=== PATIENT | female | born 1995 | race African-American/Black ===

== ENCOUNTER 2023-05-02 18:36 | Emergency (ER) | payer OTHER, SELFPAY ==
[2023-05-02] VITALS (9 sets, daily range): BP systolic 120–133; BP diastolic 76–79; PULSE 88–91; RESP 16–20; TEMP 37.2; O2SAT 100
--- NOTE | ~2023-05-02 | US_ITS ---
Pelvic ultrasound. Clinical History: First trimester , vaginal bleeding Technique: Realtime transabdominal and transvaginal scanning of the pelvis was performed. Color flow Doppler and Doppler spectral analysis were performed. Findings: The uterus is anteverted. The there is a very irregular intrauterine gestational sac, with septations and probable debris within the gestational sac. No well-defined pole or yolk sac ev ident.. Neither ovary seen. No adnexal mass seen. There is no evidence of free fluid in the cul de sac. Impression: Complex intrauterine gestational sac with septations and debris within the sac, but no pole or yolk sac. Findings are highly suspicious for blighted or/missed . Reviewed, dictated and finalized at location . Impression: Complex intrauterine gestational sac with septations and debris within the sac, but no pole or yolk sac. Findings are highly suspicious for blighted or/ missed .
--- NOTE | 2023-05-02 19:18 | PC.NURSE ---
Report received from SHERRI Armenta. Assumed care of patient at this time.
[2023-05-02 19:30] LABS: Basophils Percent Auto 0.8 % (0.2-1.2); Eosinophils Absolute Auto 0.2 K/mm3 (0-0.3); Eosinophils Percent Auto 4.6 % (0-4.4); Hematocrit 35.7 % (37.0-47.0); Hemoglobin 11.7 g/dL (12.0-15.0); Immature Granulocyte Absolute 0.01 K/mm3 (0.00-0.031); Immature Granulocyte Percent A 0.2 % (0-0.5); Lymphocytes Absolute Auto 1.32 K/mm3 (0.9-3.2); Lymphocytes Percent Auto 27.4 % (18.3-44.2); Mean Corpuscular HGB Conc 32.8 g/dl (32-36); Mean Corpuscular Hemoglobin 31.1 pg (26-34); Mean Corpuscular Volume 94.9 fl (80-100); Mean Platelet Volume 10.1 fl (7.4-10.4); Monocytes Absolute Auto 0.5 K/mm3 (0.1-0.6); Monocytes Percent Auto 10.2 % (2.6-8.5); Neutrophils Absolute Auto 2.7 K/mm3 (1.3-6.7); Neutrophils Percent Auto 56.8 % (45.5-73.1); Platelet Count Result 237 k/mm3 (150-375); Red Blood Count 3.76 M/mm3 (4.2-5.4); Red Cell Distribution Width 12.5 % (11.5-14.5); White Blood Count 4.8 K/mm3 (4.5-10.0)
--- NOTE | 2023-05-02 19:49 | ED.FEMALEGU ---
HPI - Female Genitourinary General Chief complaint: Vaginal Bleeding Stated complaint: vaginal bleeding Time Seen by Provider: 05/02/23 19:03 History of Present Illness HPI Narrative: 28-year-old presents here and 9 weeks by LMP presents with large amount of vaginal bleeding earlier today, by the time she came to the ER, she had noticed that she passed some clots, and that the bleeding has mostly stopped. She is describing some crampy pain at this time. She has had a miscarriage in the past. Related Data Allergies Allergy/AdvReac Type Severity Reaction Status Date / Time No Known Allergies Allergy Verified 05/02/23 18:42 Review of Systems Review of Systems: CONST: No fever. HEENT: No sore throat C/V: No chest pain RESP: No cough GI: Reports abdominal pain : Vaginal bleeding M/S: No joint pain. SKIN: No rash. NEURO: [No headache or focal numbness or weakness] PSYCH: [No depression] Exam Narrative: EXAMINATION OF ORGAN SYSTEMS/BODY AREAS: Constitutional: Vital signs per nursing GENERAL:[No acute distress, non-toxic appearing.] HEAD: Normal with no signs of head trauma. EYES: EOMI, conjunctiva normal ENT: Hearing grossly intact LUNGS: Nonlabored breathing. HEART: [Regular rate and rhythm] ABD: [Soft], [nontender to palpation] EXT: Normal range of motion SKIN: [No rashes or lesions.] NEURO: [Alert and oriented x 3. No gross focal sensory or strength deficits.] PSYCH: Normal affect Course Vital Signs Vital signs: Vital Signs Temperature 98.9 F 05/02/23 18:39 Pulse Rate 88 05/02/23 18:39 Respiratory Rate 20 05/02/23 18:39 Blood Pressure 132/79 05/02/23 18:39 Pulse Oximetry 100 05/02/23 18:39 Oxygen Delivery Room Air 05/02/23 18:39 Temperature 98.9 F 05/02/23 18:39 Pulse Rate 91 05/02/23 21:41 Respiratory Rate 17 05/02/23 21:41 Blood Pressure 133/76 05/02/23 21:41 Pulse Oximetry 100 05/02/23 21:41 Oxygen Delivery Room Air 05/02/23 18:39 MDM - Female Genitourinary MDM Narrative Medical decision making narrative: 28-year-old female with positive home test presenting with vaginal bleeding, and concern for threatened miscarriage versus ectopic, bedside ultrasound performed by myself showed what appeared to be a mostly empty gestational sac without any signs of fetus, I am highly concerned for miscarriage, ultrasound obtained which shows Complex intrauterine gestational sac with septations and debris within the sac, but no pole or yolk sac. Findings are highly suspicious for blighted or/missed . Findings with the patient and emphasized the need for her to follow-up with her [employer] on Thursday, with strict return cautions, as she may require D&C later. Patient reports understanding and agreement with this plan Lab Data 05/02/23 19:25 Labs: Lab Results 05/02/23 Range/Units 19:25 WBC 4.8 (4.5-10.0) K/mm3 RBC 3.76 L (4.2-5.4) M/mm3 Hgb 11.7 L (12.0-15.0) g/dL Hct 35.7 L (37.0-47.0) % MCV 94.9 (80-100) fl MCH 31.1 (26-34) pg MCHC 32.8 (32-36) g/dl RDW 12.5 (11.5-14.5) % Plt Count 237 (150-375) k/mm3 MPV 10.1 (7.4-10.4) fl Immature Gran % (Auto) 0.2 (0-0.5) % Neut % (Auto) 56.8 (45.5-73.1) % Lymph % (Auto) 27.4 (18.3-44.2) % Mcdonald % (Auto) 10.2 H (2.6-8.5) % Eos % (Auto) 4.6 H (0-4.4) % Baso % (Auto) 0.8 (0.2-1.2) % Lymph # (Auto) 1.32 (0.9-3.2) K/mm3 Mcdonald # (Auto) 0.5 (0.1-0.6) K/mm3 Eos # (Auto) 0.2 (0-0.3) K/mm3 Baso # (Auto) 0.0 (0.0-0.1) K/mm3 Abs Immat Gran (auto) 0.01 (0.00-0.031) K/mm3 Absolute Neuts (auto) 2.7 (1.3-6.7) K/mm3 Absolute Nucleated RBC 0.0 (0.0-0.012) K/mm3 Nucleated RBC % 0.0 (0.0-0.2) % Beta HCG, Quant [id number] mIU/ML Blood Type B Positive Antibody Screen Negative Screen TNP Baby's Blood Type TNP Baby's RAN Not Reportable Doses of RhIg Required [address]
--- NOTE | 2023-05-02 20:30 | PC.NURSE ---
Patient taken to ultrasound via w/c at this time.
--- NOTE | 2023-05-02 21:15 | PC.NURSE ---
Difficult to obtain FHT, unable to get a conclusive HR.
== END 2023-05-02 22:08 | disposition home or self-care (01) ==
PROVIDERS: Emergency Provider Emergency Medicine
DX: O02.1 Missed abortion (principal)
CPT/HCPCS: 36415; 76817; 84702; 85025; 85461; 86850; 86900; 86901; 99284